=== PATIENT | male | born 1960 | race Caucasian/White ===

== ENCOUNTER → 2019-08-11 | Outpatient (CLI) | payer BC ==
[~2019-08-11] MED LIST: ATEN25 PO
[2019-08-11 19:58] LABS: BASOPHILS ABSOLUTE AUTO 0.05 K/mm3 (0.00-0.23); BASOPHILS PERCENT AUTO 1 % (0-2); EOSINOPHILS ABSOLUTE AUTO 0.23 K/mm3 (0.00-0.68); EOSINOPHILS PERCENT AUTO 3 % (0-6); Hematocrit 44.3 % (37.0-53.0); Hemoglobin 14.3 g/dL (13.5-17.5); IMMATURE GRAN ABSOLUTE AUTO 0.02 K/mm3 (0.00-0.10); IMMATURE GRAN PERCENT AUTO 0 % (0-1); LYMPHOCYTES ABSOLUTE AUTO 2.64 K/mm3 (0.84-5.20); LYMPHOCYTES PERCENT AUTO 38 % (21-46); MONOCYTES ABSOLUTE AUTO 0.72 K/mm3 (0.16-1.47); MONOCYTES PERCENT AUTO 10 % (4-13); Mean Corpuscular HGB 30.6 pg (26.0-34.0); Mean Corpuscular HGB Conc 32.3 g/dL (31.5-36.5); Mean Corpuscular Volume 95 fL (80-100); Mean Platelet Volume 9.9 fL (9.1-12.4); NEUTROPHILS ABSOLUTE AUTO 3.23 K/mm3 (1.96-9.15); NEUTROPHILS PERCENT AUTO 47 % (41-73); Platelet Count 280 K/mm3 (150-400); RDW Coefficient Variation 12.6 % (11.7-14.2); RDW Standard Deviation 44.2 fL (35.1-46.3); Red Blood Cell Count 4.67 M/mm3 (4.30-5.90); White Blood Cell Count 6.89 K/mm3 (4.00-11.30)
[2019-08-11 20:20] LABS: Alanine Aminotransfer (ALT/SGP 65 U/L (12-78); Albumin, Blood 3.8 g/dL (3.4-5.0); Albumin/Globulin Ratio 1.2 (0.8-1.8); Alk Phos 86 U/L (50-136); Anion Gap 5 mmol/L (6-16); Aspartate Aminotrans (AST/SGOT 33 U/L (12-37); Bilirubin, Total 0.3 mg/dL (0.1-1.0); Blood Urea Nitrogen 18 mg/dL (8-24); Bun/Creatinine Ratio 20.9 (12.0-20.0); CO2, Blood 28 mmol/L (21-32); Calcium, Blood 8.7 mg/dL (8.5-10.1); Chloride, Blood 110 mmol/L (98-108); Creatinine, Blood 0.86 mg/dL (0.60-1.20); Globulin, Blood 3.1 g/dL (2.2-4.0); Glomerular Filtration Rate >60 (60-); Glucose, Blood 106 mg/dL (70-99); Potassium, Blood 3.9 mmol/L (3.5-5.5); Sodium, Blood 143 mmol/L (136-145); Total Protein, Blood 6.9 g/dL (6.4-8.2)
== END | disposition home or self-care (01) ==
LOC: LAB SHORT 16:40 → LAB 16:40
PROVIDERS: Hospitalist
DX: I10 Essential (primary) hypertension (principal)
CPT/HCPCS: 80053; 85025

== ENCOUNTER 2022-12-12 11:54 | Day surgery (SDC) | payer BC ==
[~2022-12-12] VITALS: Ht 177.8 cm; Wt 82.1 kg
[2022-12-12 15:09] VITALS: BP 170/114
--- NOTE | 2022-12-12 15:18 | NUR ---
12/12/22 [facility]8 Kristy Edwards 1456: CONSULTED DR HUGHES BECAUSE PATIENT'S BLOOD PRESSURE POST-OP IS 160/119, 187/109, 185/113, AND 170/114. HR STABLE RANGING BETWEEN 54-77 BPM. PATIENT HAS NOT TAKEN HIS ATENOLOL IN TWO DAYS AND STATES HIS PRIMARY CARE DOCTOR PRESCRIBED HIM A NEW BLOOD PRESSURE MEDICATION YESTERDAY THAT HE HAS NOT STARTED YET. PER DR HUGHES, PATIENT OK TO DISCHARGE BUT SHOULD BE ENCOURAGED TO RESTART HIS ATENOLOL AND FOLLOW UP WITH HIS PRIMARY CARE DOCTOR. 1458: RN COMMUNICATED THE ABOVE TO PATIENT, ENCOURAGED HIM TO TAKE HIS ATENOLOL PRESCRIBED AND TO RESTART IT TODAY PER DR HUGHES. RN ENCOURAGED PATIENT TO SEEK EMERGENCY CARE IF HE DEVELOPS ANY SYMPTOMS INCLUDING A SEVERE HEADACHE, A POUNDING HEART FEELING, SHORTNESS OF BREATH, PALPITATIONS OR ANY OTHER CONCERNS. PATIENT VERBALIZED UNDERSTANDING.
== END 2022-12-12 15:07 | disposition home or self-care (01) ==
LOC: ORSCSDS 11:54
PROVIDERS: Internal Medicine Gastroenterology
PROC: 0DBL8ZX Excision of Transverse Colon, Via Natural or Artificial Opening Endoscopic, Diagnostic (ICD-10-PCS; principal; 2022-12-12 13:15)
PROC: 0DBK8ZX Excision of Ascending Colon, Via Natural or Artificial Opening Endoscopic, Diagnostic (ICD-10-PCS; principal; 2022-12-12 13:15)
PROC: 0DBN8ZX Excision of Sigmoid Colon, Via Natural or Artificial Opening Endoscopic, Diagnostic (ICD-10-PCS; principal; 2022-12-12 13:15)
PROC: 0DBP8ZX Excision of Rectum, Via Natural or Artificial Opening Endoscopic, Diagnostic (ICD-10-PCS; principal; 2022-12-12 13:15)
DX: Z12.11 Encounter for screening for malignant neoplasm of colon (principal); C20 Malignant neoplasm of rectum; D12.3 Benign neoplasm of transverse colon; D12.5 Benign neoplasm of sigmoid colon; D12.2 Benign neoplasm of ascending colon; D12.8 Benign neoplasm of rectum; K57.30 Diverticulosis of large intestine without perforation or abscess without bleeding; K21.9 Gastro-esophageal reflux disease without esophagitis; I10 Essential (primary) hypertension; Z79.899 Other long term (current) drug therapy
CPT/HCPCS: 88305; J2704; J7120

== ENCOUNTER 2023-01-15 21:40 | Emergency (ER) | payer BC ==
[~2023-01-15] VITALS: Ht 172.7 cm; Wt 83.9 kg
[2023-01-15 22:29] LABS: BASOPHILS ABSOLUTE AUTO 0.09 K/mm3 (0.00-0.23); BASOPHILS PERCENT AUTO 1 % (0-2); EOSINOPHILS ABSOLUTE AUTO 1.14 K/mm3 (0.00-0.68); EOSINOPHILS PERCENT AUTO 10 % (0-6); Hematocrit 39.8 % (37.0-53.0); Hemoglobin 13.6 g/dL (13.5-17.5); IMMATURE GRAN ABSOLUTE AUTO 0.04 K/mm3 (0.00-0.10); IMMATURE GRAN PERCENT AUTO 0 % (0-1); LYMPHOCYTES ABSOLUTE AUTO 2.06 K/mm3 (0.84-5.20); LYMPHOCYTES PERCENT AUTO 18 % (21-46); MONOCYTES ABSOLUTE AUTO 0.54 K/mm3 (0.16-1.47); MONOCYTES PERCENT AUTO 5 % (4-13); Mean Corpuscular HGB 30.8 pg (26.0-34.0); Mean Corpuscular HGB Conc 34.2 g/dL (31.5-36.5); Mean Corpuscular Volume 90 fL (80-100); Mean Platelet Volume 9.8 fL (9.1-12.4); NEUTROPHILS ABSOLUTE AUTO 7.85 K/mm3 (1.96-9.15); NEUTROPHILS PERCENT AUTO 67 % (41-73); Platelet Count 311 K/mm3 (150-400); RDW Coefficient Variation 13.2 % (11.7-14.2); RDW Standard Deviation 43.8 fL (35.1-46.3); Red Blood Cell Count 4.41 M/mm3 (4.30-5.90); White Blood Cell Count 11.72 K/mm3 (4.00-11.30)
[2023-01-15 22:41] LABS: Albumin, Blood 3.7 g/dL (3.4-5.0); Bilirubin, Total 0.4 mg/dL (0.1-1.0); Bun/Creatinine Ratio 26.5 (12.0-20.0); Calcium, Blood 9.4 mg/dL (8.5-10.1); Creatinine, Blood 0.91 mg/dL (0.60-1.20); Globulin, Blood 3.6 g/dL (2.2-4.0); Potassium, Blood 3.9 mmol/L (3.5-5.5); Total Protein, Blood 7.3 g/dL (6.4-8.2)
[2023-01-16 02:34] LABS: Source, Urine Clean Catch
[2023-01-16 02:36] LABS: Bilirubin, Urine Neg (Neg); Blood, Urine 3+ (Neg); Glucose Qualitative, Urine Neg (Neg); Ketones, Urine 3+ (Neg); Leukocyte Esterase, Urine Neg (Neg); Nitrite, Urine Neg (Neg); Protein, Urine Neg (Neg); Urobilinogen, Urine NORM (Normal)
[2023-01-16 02:39] VITALS: BP 160/108
[2023-01-16 02:59] LABS: Appearance, Urine Clear (Clear); Color, Urine Yellow (P-Yellow)
[2023-01-16 03:00] LABS: Bacteria Few /hpf; Squamous Epithelial Cells Few /hpf (Few); White Blood Cells, Urine 0-2 /hpf (0-5)
[2023-01-16] MEDS ORDERED: Ibuprofen600 MG PO (03:04)
[2023-01-16] MEDS ORDERED: TAMS.4ER PO (03:04)
== END 2023-01-16 03:53 | disposition home or self-care (01) ==
LOC: ER 21:40
PROVIDERS: Emergency Medicine; Student in an Organized Health Care Education/Training Program
DX: N13.2 Hydronephrosis with renal and ureteral calculous obstruction (principal); E86.0 Dehydration; Z79.899 Other long term (current) drug therapy
CPT/HCPCS: 74177; 80053; 81001; 83690; 84484; 85025; 93005; 93010; 96361; 96374; 96375; 99284-25; J1885; J3010; J7030; Q9967

== ENCOUNTER → 2024-05-05 | Outpatient (CLI) | payer BC ==
[~2024-05-05] MED LIST changes: +Ibuprofen600 MG PO; +TAMS.4ER PO
[2024-05-05 19:28] LABS: BASOPHILS ABSOLUTE AUTO 0.06 K/mm3 (0.00-0.23); BASOPHILS PERCENT AUTO 1 % (0-2); EOSINOPHILS ABSOLUTE AUTO 0.46 K/mm3 (0.00-0.68); EOSINOPHILS PERCENT AUTO 6 % (0-6); Hematocrit 41.7 % (37.0-53.0); Hemoglobin 14.3 g/dL (13.5-17.5); IMMATURE GRAN ABSOLUTE AUTO 0.01 K/mm3 (0.00-0.10); IMMATURE GRAN PERCENT AUTO 0 % (0-1); LYMPHOCYTES ABSOLUTE AUTO 2.79 K/mm3 (0.84-5.20); LYMPHOCYTES PERCENT AUTO 37 % (21-46); MONOCYTES ABSOLUTE AUTO 0.61 K/mm3 (0.16-1.47); MONOCYTES PERCENT AUTO 8 % (4-13); Mean Corpuscular HGB 31.8 pg (26.0-34.0); Mean Corpuscular HGB Conc 34.3 g/dL (31.5-36.5); Mean Corpuscular Volume 93 fL (80-100); Mean Platelet Volume 9.8 fL (9.1-12.4); NEUTROPHILS ABSOLUTE AUTO 3.67 K/mm3 (1.96-9.15); NEUTROPHILS PERCENT AUTO 48 % (41-73); Platelet Count 285 K/mm3 (150-400); RDW Coefficient Variation 12.5 % (11.7-14.2); RDW Standard Deviation 42.8 fL (35.1-46.3); Red Blood Cell Count 4.49 M/mm3 (4.30-5.90)
[2024-05-05 20:15] LABS: Albumin, Blood 3.6 g/dL (3.4-5.0); Albumin/Globulin Ratio 1.1 (0.8-1.8); Bilirubin, Total 0.3 mg/dL (0.1-1.0); Bun/Creatinine Ratio 27.4 (12.0-20.0); Creatinine, Blood 0.88 mg/dL (0.60-1.20); Globulin, Blood 3.2 g/dL (2.2-4.0); Potassium, Blood 3.7 mmol/L (3.5-5.5); Total Protein, Blood 6.8 g/dL (6.4-8.2)
== END ==
LOC: LAB SHORT 19:16 → LAB 19:16
PROVIDERS: Hospitalist
DX: I10 Essential (primary) hypertension (principal)
CPT/HCPCS: 80053; 85025

== ENCOUNTER → 2024-06-11 | Outpatient (CLI) | payer BC ==
[2024-06-11 16:36] LABS: Cholesterol 219 mg/dL (50-200); HDL Cholesterol 44 mg/dL (>39); LDL/HDL RATIO 2.7; Low Density Lipoprotein Chol 121 mg/dL (0-110); Triglycerides 271 mg/dL (30-160); Very Low Density Lipoprot Chol 54 mg/dL (6-32)
[2024-06-11 16:46] LABS: BASOPHILS ABSOLUTE AUTO 0.03 K/mm3 (0.00-0.23); BASOPHILS PERCENT AUTO 1 % (0-2); EOSINOPHILS ABSOLUTE AUTO 0.25 K/mm3 (0.00-0.68); EOSINOPHILS PERCENT AUTO 5 % (0-6); Hematocrit 40.1 % (37.0-53.0); Hemoglobin 13.6 g/dL (13.5-17.5); IMMATURE GRAN ABSOLUTE AUTO 0.01 K/mm3 (0.00-0.10); IMMATURE GRAN PERCENT AUTO 0 % (0-1); LYMPHOCYTES ABSOLUTE AUTO 1.99 K/mm3 (0.84-5.20); LYMPHOCYTES PERCENT AUTO 37 % (21-46); MONOCYTES ABSOLUTE AUTO 0.44 K/mm3 (0.16-1.47); MONOCYTES PERCENT AUTO 8 % (4-13); Mean Corpuscular HGB 31.6 pg (26.0-34.0); Mean Corpuscular HGB Conc 33.9 g/dL (31.5-36.5); Mean Corpuscular Volume 93 fL (80-100); Mean Platelet Volume 10.3 fL (9.1-12.4); NEUTROPHILS ABSOLUTE AUTO 2.72 K/mm3 (1.96-9.15); NEUTROPHILS PERCENT AUTO 50 % (41-73); Platelet Count 221 K/mm3 (150-400); RDW Coefficient Variation 12.7 % (11.7-14.2); RDW Standard Deviation 43.9 fL (35.1-46.3); Red Blood Cell Count 4.31 M/mm3 (4.30-5.90); White Blood Cell Count 5.44 K/mm3 (4.00-11.30)
[2024-06-11 18:42] LABS: Bun/Creatinine Ratio 26.1 (12.0-20.0); Creatinine, Blood 0.92 mg/dL (0.60-1.20); Potassium, Blood 4.3 mmol/L (3.5-5.5)
== END ==
LOC: LAB 14:20 → LAB SHORT 14:20
PROVIDERS: Hospitalist; Orthopaedic Surgery
DX: E78.1 Pure hyperglyceridemia (principal); R73.9 Hyperglycemia, unspecified; M16.11 Unilateral primary osteoarthritis, right hip
CPT/HCPCS: 80048; 80061; 83036; 85025

== ENCOUNTER 2024-06-30 07:57 | Day surgery (SDC) | payer BC ==
[~2024-06-30] VITALS: Ht 177.8 cm; Wt 81.4 kg
[2024-06-30] VITALS (12 sets, daily range): BP systolic 114–161; BP diastolic 76–104
[~2024-06-30 07:57] MED LIST changes: +Acetaminophen 500 MG Tab PO SCH; +CeFAZolin Sodium 2,000 MG in NS 100 ML IV SCH; +Chlorhexidine Mouth Care 15 ML UDC MT SCH; +Lactated Ringer's 1,000 ML IV SCH; +OxyCODONE HCL 10 MG TABCR PO SCH; +Ropivacaine 0.5% HCl/Pf 123.125 MG,EPINEPHrine HCL 0.25 MG,Ketorolac Tromethamine 15 MG... INFIL SCH; +Tranexamic Acid 100 ML IV SCH
[2024-06-30] MEDS ORDERED: FentaNYL Citrate 50 MCG/ML 2 ML Injection IV PRN ×2 (08:30→08:35)
[2024-06-30] MEDS ORDERED: Morphine Sulfate 4 MG/1 ML Injection IV PRN (08:35)
[2024-06-30] MEDS ORDERED: Metoclopramide HCl 5MG / ML 2ML Vial IV PRN ×2 (08:35→09:45)
[2024-06-30] MEDS ORDERED: HYDROmorphone HCl/Pf 1MG SYR IV PRN ×2 (08:35→09:50)
[2024-06-30] MEDS ORDERED: Labetalol HCL 5 MG/ML 4ML Injection (Single Dose) IV PRN (08:35)
[2024-06-30] MEDS ORDERED: Ondansetron HCl 2 MG / ML 2ML Vial IV PRN ×2 (08:35→09:45)
[2024-06-30] MEDS ORDERED: Ondansetron HCl 2 MG / ML 2ML Vial ONE (08:41)
[2024-06-30] MEDS ORDERED: Metoclopramide HCl 5MG / ML 2ML Vial ONE (08:41)
[2024-06-30] MEDS ORDERED: Lidocaine HCl 2% 20 ML MDV ONE (08:41)
[2024-06-30] MEDS ORDERED: propofoL 60 ML IV ONE (08:42)
[2024-06-30] MEDS ORDERED: Phenylephrine HCl 100 MCG/ML-NS 10MLSYR (1MG/10ML) ONE (08:50)
[2024-06-30] MEDS ORDERED: HYDROmorphone HCl/Pf 1MG SYR ONE (09:01)
[2024-06-30] MEDS ORDERED: Midazolam HCl 1MG / ML 2ML Vial ONE (09:01)
[2024-06-30] MEDS ORDERED: Prochlorperazine Edisylate 10 mg Vial IV PRN (09:40)
[2024-06-30] MEDS ORDERED: Bisacodyl 10 MG Supp PR PRN (09:40)
[2024-06-30] MEDS ORDERED: Magnesium Sulfate 500 MG / ML 2ML Vial ONE (09:43)
--- NOTE | 2024-06-30 09:43 | NUR ---
History, Chart, Medications and Allergies reviewed before start of procedure. Pre-Op teaching done. Pt verbalizes understanding. Patient States Post-Procedure ride home has been arranged. Pt belongings to OR with pt. Pt cell phone and glasses to PACU with pt label.
[2024-06-30] MEDS ORDERED: propofoL 100 ML IV ONE (09:44)
[2024-06-30] MEDS ORDERED: OxyCODONE HCL 5 MG TAB PO PRN ×2 (09:45)
[2024-06-30] MEDS ORDERED: Magnesium Hydroxide Conc 10 ML UDC PO PRN (09:45)
[2024-06-30] MEDS ORDERED: Promethazine HCl 25 MG Tab PO PRN (09:50)
[2024-06-30] MEDS ORDERED: DiphenhydrAMINE HCL 25 MG Cap PO PRN (09:50)
[2024-06-30] MEDS ORDERED: Lactated Ringer's 1,000 ML IV SCH (09:55)
[2024-06-30] MEDS ORDERED: Ketorolac Tromethamine 15mg Vial IV SCH (12:00)
--- NOTE | 2024-06-30 12:36 | NUR ---
ARRIVAL TO UNIT PT ARRIVED TO UNIT AT 1230 FROM PACU. S/P RIGHT DESIRAE. ALERT AND ORIENTED X4. ABLE TO MAKE NEEDS KNOWN. SATS >90% ON RA. VSS. DENIES CHEST PAIN, PRESSURE. DENIES N/V. SNACKS WITHIN REACH. IV FLUIDS INFUSING PER EMAR. PAIN MANAGED PER EMAR WITH IV TORADOL. AQUACEL TO RIGHT HIP C/D/I. CALL LIGHT WITHIN REACH. SPOUSE AT BEDSIDE.
[2024-06-30] MEDS ORDERED: ASPI81CH PO (12:38)
[2024-06-30] MEDS ORDERED: Acetaminophen 500 MG Tab PO SCH (16:00)
[2024-06-30] MEDS ORDERED: CeFAZolin Sodium 2,000 MG in NS 100 ML IV SCH (18:00)
--- NOTE | 2024-06-30 18:16 | NUR ---
DISCHARGE PT DISCHARGED THE UNIT AT APPROXIMATELY 1820. S/P RIGHT DESIRAE. ALERT AND ORIENTED X4. VSS. SATS >90% ON RA. PAIN MANAGED PER EMAR. DENIES CHEST PAIN, PRESSURE. PPP. CAP REFILL <3 SECONDS. DENIES N/V. AQUACEL TO RIGHT HIP C/D/I. EXTRA AQUACEL PROVIDED TO PT. VOIDING. WORKED WITH PHYSICAL THERAPY. WRITTEN AND VERBAL EDUCATION PROVIDED. PT AND SPOUSE STATE UNDERSTANDING. IV REMOVED. PERSONAL BELONGINGS WITH PT.
[2024-06-30] MEDS ORDERED: Docusate Sodium 100 MG Cap PO SCH (21:00)
[2024-07-01] MEDS ORDERED: Aspirin 81 MG Chew PO SCH (09:00)
[2024-07-01] MEDS ORDERED: Atenolol 25 MG Tab PO SCH (09:00)
== END 2024-06-30 18:19 | disposition home or self-care (01) ==
LOC: ORSCMMR 07:57 → ORD 09:15 → ORSCMMR 09:15 → SURS 12:20 → ORSCMMR 18:19
PROVIDERS: Orthopaedic Surgery
PROC: 0SR90JZ Replacement of Right Hip Joint with Synthetic Substitute, Open Approach (ICD-10-PCS; principal; 2024-06-30 09:15)
DX: M16.11 Unilateral primary osteoarthritis, right hip (principal); I10 Essential (primary) hypertension; Z79.899 Other long term (current) drug therapy
CPT/HCPCS: 72170; 97110; 97116; 97162; A9270; C1776; J0171; J0690; J0735; J1171; J1885; J2250; J2371; J2405; J2704; J2765; J2795; J3475; J7120